=== PATIENT | female | born 1970 | race Caucasian/White ===

== ENCOUNTER 2019-11-06 06:06 | Observation (INO) | payer OTHER ==
[~2019-11-06 06:06] MED LIST: CEFAZOLIN 2 GM-D5W BAG** 2 GM/50 ML ML IV SCH; Lactated Ringers 1,000 ML IV SCH
[2019-11-06] MEDS ORDERED: CEFAZOLIN 2 GM-D5W BAG** 2 GM/50 ML ML IV ONE (07:27)
[2019-11-06] MEDS ORDERED: Lactated Ringers 1,000 ML IV ONE (07:27)
[2019-11-06] MEDS ORDERED: PITRESSIN 20 UNITS*** 20 UNIT in Sodium Chloride 0.9% 100 ML IVPB 100 ML IV SCH (07:45)
[2019-11-06] MEDS ORDERED: Lactated Ringers 2,000 ML IV ONE (08:15)
[2019-11-06] MEDS ORDERED: Sensorcaine 0.25% 10 ML ONE (08:15)
[2019-11-06] MEDS ORDERED: DILAUDID 2 MG INJECTION ONE ×2 (09:53→10:07)
[2019-11-06] MEDS ORDERED: SUBLIMAZE 100 MCG/2 ML ONE (10:07)
[2019-11-06] MEDS ORDERED: MORPHINE SULFATE 4 MG INJ IV PRN ×2 (11:20→11:21)
[2019-11-06] MEDS ORDERED: MORPHINE SULFATE 2 MG INJ IV PRN (11:21)
[2019-11-06] MEDS: Lactated Ringers 1,000 ML IV SCH ×2 (11:25→18:47)
[2019-11-06] MEDS: Reglan 10 MG/2 ML IV SCH ×3 (11:29→23:34)
[2019-11-06] MEDS: Zofran 4 MG/2 ML VIAL IV PRN ×2 (11:29→17:09)
[2019-11-06] MEDS ORDERED: CLARITIN 10 MG PO PRN (11:30)
[2019-11-06] MEDS ORDERED: NON-FORMULARY ITEM (Fexofenadine Hcl [Allegra] 180 MG) PO SCH (11:30)
[2019-11-06] MEDS: Colace 100 MG PO SCH ×2 (11:34→21:31)
[2019-11-06] MEDS: VITAMIN D PO SCH (11:35)
[2019-11-06] MEDS: THERAGRAN MULTIVITAMIN PO SCH (11:35)
[2019-11-06] MEDS: Flonase NASAL NS SCH ×2 (11:35→21:31)
[2019-11-06] MEDS: SYNTHROID 75 MCG PO SCH (11:35)
[2019-11-06] MEDS ORDERED: MEDICATION INTERVENTION PO SCH (11:45)
[2019-11-06] MEDS: CEFAZOLIN 2 GM-D5W BAG** 2 GM/50 ML ML IV SCH ×2 (13:52→21:30)
[2019-11-06] MEDS: Mylicon 80MG PO SCH ×2 (13:52→21:31)
[2019-11-06] MEDS: TORAdol 30 mg Injection IV PRN ×2 (15:25→21:32)
[2019-11-06 18:23] LABS: Hematocrit 36.2 % (35-47); Mean Cell Volume 92.3 fl (78-100); Mean Corpuscular Hemoglobin 30.6 pg (26-32); Mean Corpuscular Hgb Concent. 33.1 g/dl (32-36); Mean Platelet Volume 10.2 fl (7.5-11.0); Platelet Count 220 K/mm3 (150-450); Red Blood Count 3.92 M/mm3 (4.1-5.4); Red Cell Distribution Width 13.2 % (11.5-14.0); White Blood Count 11.7 K/mm3 (4.0-10.5)
[2019-11-06] MEDS ORDERED: Phenergan 25 MG INJ IV PRN (19:35)
[2019-11-06] MEDS ORDERED: ENOXAPARIN SODIUM SQ SCH (21:00)
[2019-11-07] MEDS: Lactated Ringers 1,000 ML IV SCH (02:04)
[2019-11-07] MEDS: Mylicon 80MG PO SCH (05:15)
[2019-11-07 05:16] LABS: Hematocrit 32.4 % (35-47); Hemoglobin 10.8 gm/dl (12.0-16.0); Mean Cell Volume 92.3 fl (78-100); Mean Corpuscular Hemoglobin 30.8 pg (26-32); Mean Corpuscular Hgb Concent. 33.3 g/dl (32-36); Mean Platelet Volume 10.5 fl (7.5-11.0); Platelet Count 225 K/mm3 (150-450); Red Blood Count 3.51 M/mm3 (4.1-5.4); Red Cell Distribution Width 13.3 % (11.5-14.0); White Blood Count 11.4 K/mm3 (4.0-10.5)
[2019-11-07] MEDS: Reglan 10 MG/2 ML IV SCH (05:16)
[2019-11-07 05:21] LABS: ALBUMIN 3.3 g/dL (3.5-5.0); ALKALINE PHOSPHATASE 58 U/L (38-126); ANION GAP 10.4 MEQ/L (5-15); BLOOD UREA NITROGEN 8 mg/dL (7-17); CHLORIDE 109 mmol/L (98-107); Calcium 8.4 mg/dL (8.4-10.2); Carbon Dioxide 24 mmol/L (22-30); Creatinine 1 0.68 mg/dL (0.52-1.04); Glucose 96 mg/dL (74-106); Potassium 3.8 mmol/L (3.5-5.1); SGOT/AST 23 U/L (14-36); SGPT/ALT 16 U/L (0-35); SODIUM 139 mmol/L (137-145); Total Protein 5.8 g/dL (6.3-8.2)
[2019-11-07 07:57] VITALS: BP 103/59; PULSE 75; O2SAT 94
--- NOTE | 2019-11-07 08:24 | PCM.DCORD ---
- Discharge Discharge Date: 11/07/19 Prescriptions: No Action Multivitamin [Daily Multivitamin] 1 each PO DAILY Cholecalciferol (Vitamin D3) [Vitamin D] 1,000 unit PO DAILY Fluticasone Propionate [Flonase NASAL] 16 gm NS BID Elderberry Fruit and Flower [Black Elderberry 575 mg Cap] 1 each PO DAILY Levothyroxine Sodium 75 Mcg [Synthroid 75 Mcg] 75 mcg PO DAILY Fexofenadine HCl [Fiona] 180 mg PO UD Follow up with: JONH PAN FNP [Primary Care Provider] - 1 Week JAG LOPES DO [ACTIVE STAFF] - 11/21/19
--- NOTE | 2019-11-07 08:28 | PCM.DS ---
Discharge Summary Date of Admission: 11/06/19 06:06 Date of Discharge: 11/07/19 Admitting Physician: JAG LOPES DO Primary Care Provider: JENNIFER GONZALEZ Allergies Allergies albuterol Adverse Reaction (Severe, Verified 11/06/19 07:32) Lightheadedness States "SEVERE ANXIETY FOR HOURS AND HOURS AFTER USE" Hospital Summary - Vitals & Intake/Output Vital Signs: Vital Signs Temperature 98.9 F 11/07/19 07:56 Pulse Rate 75 11/07/19 07:56 Respiratory Rate 18 11/07/19 07:56 Blood Pressure 103/59 11/07/19 07:56 O2 Sat by Pulse Oximetry 94 L 11/07/19 07:56 Intake & Output: Intake & Output 11/04/19 11/05/19 11/06/19 11/07/19 11:59 11:59 11:59 11:59 Intake Total 2402 Output Total 2650 Balance -248 Weight 84.7 kg - Lab Result Diagrams: 11/07/19 04:25 11/07/19 04:25 Lab Results-Last 24 Hrs: Lab Results-Last 24 Hours 11/06/19 11/07/19 11/07/19 Range/Units 18:20 04:25 04:25 WBC 11.7 H 11.4 H (4.0-10.5) K/mm3 RBC 3.92 L 3.51 L (4.1-5.4) M/mm3 Hgb 12.0 10.8 L (12.0-16.0) gm/dl Hct 36.2 32.4 L (35-47) % MCV 92.3 92.3 (78-100) fl MCH 30.6 30.8 (26-32) pg MCHC 33.1 33.3 (32-36) g/dl RDW 13.2 13.3 (11.5-14.0) % Plt Count 220 225 (150-450) K/mm3 MPV 10.2 10.5 (7.5-11.0) fl Sodium 139 (137-145) mmol/L Potassium 3.8 (3.5-5.1) mmol/L Chloride 109 H (98-107) mmol/L Carbon Dioxide 24 (22-30) mmol/L Anion Gap 10.4 (5-15) MEQ/L BUN 8 (7-17) mg/dL Creatinine 0.68 (0.52-1.04) mg/dL Estimated GFR > 60.0 ML/MIN Glucose 96 (74-106) mg/dL Calcium 8.4 (8.4-10.2) mg/dL Total Bilirubin 0.30 (0.2-1.3) mg/dL AST 23 (14-36) U/L ALT 16 (0-35) U/L Alkaline Phosphatase 58 (38-126) U/L Serum Total Protein 5.8 L (6.3-8.2) g/dL Albumin 3.3 L (3.5-5.0) g/dL Micro Results-Entire Visit: Microbiology 11/06/19 12:13 Urine Culture - Preliminary Catherized NO GROWTH TO DATE - Procedures and Test Procedures and Tests throughout Hospitalization: Therapy Orders & Screens 11/06/19 10:55 Incentive Spirometry UD Comment: Diagnosis: cervical dysplasia 11/06/19 11:47 Oxygen Nasal Cannula 2 lpm Comment: Diagnosis: cervical dysplasia Discharge Exam Wound Assessment: Skin/Wound Assessment Wound/Incision Assessment Start: 11/06/19 11: 13 Text: Status: Active Freq: Q8H Protocol: Document 11/07/19 04:00 KX (Rec: 11/07/19 05:23 KX [id number]) Wound/Incision Assessment Anterior Abdomen Wound Assessment Shift Assessment Wound Type Puncture Wound Stage Non Pressure Wound Drainage Amount None Comment bilat puncture sites clean and dry with no drainage or redness Final Diagnosis/Problem List - Final Discharge Diagnosis/Problem (1) Severe cervical dysplasia Current Visit: Yes Status: Resolved Assessment & Plan: sp laparascopic assisted vaginal hysterectomy with bilateral salpingectomy secondary to severe cervical dysplasia Code(s): D06.9 - CARCINOMA IN SITU OF CERVIX, UNSPECIFIED - Discharge Disposition: Home, Self-Care Condition: Stable Prescriptions: No Action Multivitamin [Daily Multivitamin] 1 each PO DAILY Cholecalciferol (Vitamin D3) [Vitamin D] 1,000 unit PO DAILY Fluticasone Propionate [Flonase NASAL] 16 gm NS BID Elderberry Fruit and Flower [Black Elderberry 575 mg Cap] 1 each PO DAILY Levothyroxine Sodium 75 Mcg [Synthroid 75 Mcg] 75 mcg PO DAILY Fexofenadine HCl [Fiona] 180 mg PO UD Follow up with: JONH PAN FNP [Primary Care Provider] - 1 Week JAG LOPES DO [ACTIVE STAFF] - 11/21/19
--- NOTE | 2019-11-07 08:56 | OP ---
SURGERY DATE/TIME: 11/06/2019 0800 PREOPERATIVE DIAGNOSIS: Severe cervical dysplasia. POSTOPERATIVE DIAGNOSIS: Severe cervical dysplasia. PROCEDURE: Laparoscopic assisted vaginal hysterectomy with bilateral salpingectomy. SURGEON: Mateus Mejia D.O. TELEPHONE DIAPHRAGM ASSEMBLER: Sandra Monet surgical instrument repair specialist. ANESTHESIA: General. ESTIMATED BLOOD LOSS: 200 cc. COMPLICATIONS: None. INDICATIONS: The risks, benefits, indications and alternatives of the procedure were reviewed with the patient prior to the procedure. The patient understood the risk of infection, bleeding, bowel injury, bladder injury, ureteral injury, uterine perforation, pelvic infection and thromboembolic disorder associated with the surgery and desires to have the surgery as a possible need to alleviate her current medical condition. DESCRIPTION OF PROCEDURE AND FINDINGS: At this point the patient is taken to the operating room, given general sedation, placed in dorsal lithotomy position. Prepped and draped in the usual sterile fashion. At this point a weighted speculum is then placed in the patient's vagina and the anterior lip of the cervix grasped with a single tooth tenaculum. Endocervical dilator advanced through the endocervical canal to dilate the cervix. At this point the uterine manipulator inserted in through endocervical canal as a means to manipulate the uterus. Attention was then turned to the patient's abdomen where a 5 mm skin incision is made approximately 1 cm above the umbilicus where a 5 mm trocar and sleeve were advanced under direct visualization where pneumoperitoneum was obtained with 4 liters of CO2 gas. At this point an additional incision is made in the left middle quadrant region where 5 mm trocar and sleeve was made and another incision was made in the right middle quadrant region where a 5 mm trocar and sleeve were obtained and was placed without complication. From this point with elevation of the uterus with the uterine manipulator, LigaSure was used and the uterus was brought to one side. The fallopian tube was lifted and LigaSure placed on the mesosalpinx where it was clamped, coagulated and cut through the mesosalpinx on her left side towards the cornua and from this point the LigaSure placed on the utero-ovarian ligament taking to round ligament towards the uterine vasculature. Hemostasis was obtained. The uterine artery skeletonized on its side and the uterine arteries were clamped, coagulated and cut and bladder reflection to the midline on its side. The same procedure was performed on the right side and was done so without complication. The bilateral adnexa and ovaries appeared to be within normal limits and were not removed during the procedure. Attention was then turned to the patient's vaginal region where at this point a weighted speculum is then placed into the vagina and the cervix grasped with single tooth tenaculum. The cervix is then injected circumferentially with vasopressin and approximately 9 cc was given. The cervix was then circumferentially incised with a scalpel and the bladder dissected off the pubovesical cervical fascia anteriorly with a sponge stick and Metzenbaum scissors. The anterior cul-de-sac was then entered sharply. The same procedure was performed posteriorly and the posterior cul-de-sac entered sharply without difficulty. At this point Emma clamps were placed over the uterosacral ligaments on either side. They were then transected and suture ligated with 0 Vicryl suture. Hemostasis assured. The Cardinal ligaments were then clamped on both sides, transected and suture ligated in normal fashion. From this point the uterine arteries were clamped on both sides with a LigaSure, coagulated and cut. Hemostasis obtained. From this point the uterus is then delivered without complication. At this point the vaginal cuff angles were closed with a figure-of-8 sutures of 0 Vicryl on both sides and transfixed to the ipsilateral Cardinal and uterosacral ligaments. The remainder of the vaginal cuff was closed with a figure-of-8 stitch of 0 Vicryl in interrupted fashion. From this point attention was then turned to the patient's abdominal region where visualization from the laparoscope revealed there was no bleeding that was noted. There were no other gross abnormalities noted within the abdominopelvic region. At this point all instruments were then removed from the patient's abdominal region and the incisions were closed with 4-0 Monocryl suture with subsequent Dermabond. The patient was then taken out of anesthesia. The patient was then taken out of dorsal lithotomy position and was then taken to the recovery room in stable condition. All instruments, laps were accounted for x2.
[2019-11-07] MEDS: Colace 100 MG PO SCH (09:27)
[2019-11-07] MEDS: SYNTHROID 75 MCG PO SCH (09:28)
[2019-11-07] MEDS: THERAGRAN MULTIVITAMIN PO SCH (09:28)
[2019-11-07] MEDS: VITAMIN D PO SCH (09:29)
[2019-11-07] MEDS: Flonase NASAL NS SCH (09:29)
[2019-11-07] MEDS ORDERED: NON-FORMULARY ITEM (Multivitamin [Daily Multivitamin] 1 EACH) PO SCH (10:00)
[2019-11-07] MEDS ORDERED: ELDERBERRY FRUIT AND FLOWER PO SCH (10:00)
== END 2019-11-07 10:07 | disposition home or self-care (01) ==
LOC: MED SURG 06:06 → EDSTATUS 12:18
PROVIDERS: ADMIT Obstetrics & Gynecology; ATTEND Obstetrics & Gynecology
DX: D06.9 Carcinoma in situ of cervix, unspecified (principal); D25.9 Leiomyoma of uterus, unspecified; Z79.899 Other long term (current) drug therapy
CPT/HCPCS: 36415; 58552; 80053; 84703; 85027; 87086; 88341; 88342; 94760; 94762; G0378; 88307; J0690; J1170; J1650; J1885; J2270; J2405; J3010; A9270-GY